=== PATIENT | male | born 1980 | race Hispanic/Latino ===

== ENCOUNTER 2018-01-22 01:53 | Emergency (ER) | payer SELFPAY ==
[2018-01-22] MEDS ORDERED: ALBUTEROL 2.5 MG/3 ML NEB SOL ONE (02:12)
[2018-01-22] MEDS ORDERED: IPRATROPIUM BROM 0.5MG/2.5ML ONE (02:12)
[2018-01-22] MEDS ORDERED: predniSONE 20 MG TAB ONE (02:12)
--- NOTE | 2018-01-22 02:55 | EDPHYS ---
Physician Documentation [facility] Name: Alonzo Damon Age: 37 yrs Sex: Male : 1980 Arrival Date: 01/22/2018 Time: 01:56 Bed 26 Private MD: LUKAS Physician Gigi Gomez HPI: 01/22 02:04 This 37 yrs old Male presents to ER via Unassigned with complaints of Asthma kb Exacerbation. 02:04 The patient presents to the emergency department with wheezing, Current therapy: kb albuterol inhaler, ran out of inhaler 2 days ago, that began without any particular precipitating event, the patient was reported to have trouble breathing. Onset: The symptoms/episode began/occurred this morning. Modifying factors: The symptoms are alleviated by nothing, the symptoms are aggravated by nothing. Associated signs and symptoms: The patient has no apparent associated signs or symptoms. Severity of symptoms: At their worst the symptoms were mild moderate in the emergency department the symptoms are unchanged. The patient has experienced similar episodes in the past, multiple times. The patient has not recently seen a physician. 02:06 Pt states he ran out of his inhaler 2 days ago. Has been having issues with his asthma kb since then. States tonight he woke up "looking for air." Reports his PCP is in [place] and he would normally just go to him and get his inhaler refilled and prednisone for exacerbations.. Historical: - Allergies: 02:07 No Known Allergies; rk2 - PMHx: 02:07 Asthma; rk2 - Immunization history:: Flu vaccine is not up to date. - Social history:: Smoking status: Patient/guardian denies using tobacco. ROS: 02:06 Constitutional: Negative for fever, chills, and weight loss, Cardiovascular: Negative kb for chest pain, palpitations, and edema, Abdomen/GI: Negative for abdominal pain, nausea, vomiting, diarrhea, and constipation, Back: Negative for injury and pain, : Negative for injury, bleeding, discharge, and swelling, MS/Extremity: Negative for injury and deformity, Skin: Negative for injury, rash, and discoloration, Neuro: Negative for headache, weakness, numbness, tingling, and seizure. 02:06 Respiratory: Positive for shortness of breath, wheezing, expiratory, Negative for cough, dyspnea on exertion, hemoptysis, orthopnea, pleurisy, sputum production. Exam: 02:05 Constitutional: This is a well developed, well nourished patient who is awake, alert, kb and in no acute distress. Head/Face: Normocephalic, atraumatic. Chest/axilla: Normal chest wall appearance and motion. Nontender with no deformity. No lesions are appreciated. Cardiovascular: Regular rate and rhythm with a normal S1 and S2. No gallops, murmurs, or rubs. Normal PMI, no JVD. No pulse deficits. Abdomen/GI: Soft, non-tender, with normal bowel sounds. No distension or tympany. No guarding or rebound. No evidence of tenderness throughout. Back: No spinal tenderness. No costovertebral tenderness. Full range of motion. Skin: Warm, dry with normal turgor. Normal color with no rashes, no lesions, and no evidence of cellulitis. MS/ Extremity: Pulses equal, no cyanosis. Neurovascular intact. Full, normal range of motion. Neuro: Awake and alert, GCS 15, oriented to person, place, time, and situation. Cranial nerves II-XII grossly intact. Motor strength 5/5 in all extremities. Sensory grossly intact. Cerebellar exam normal. Normal gait. 02:05 Respiratory: the patient does not display signs of respiratory distress, Respirations: normal, Breath sounds: wheezing: expiratory that is mild, is scattered. Vital Signs: 02:07 BP 157 / 90; Pulse 65; Resp 22; Temp 98.3; Pulse Ox 97% on R/A; rk2 MDM: 02:04 Patient medically screened. kb 02:05 Data reviewed: vital signs, nurses notes. Data interpreted: Pulse oximetry: on room air kb is 98 %. Interpretation: normal. 02:54 Counseling: I had a detailed discussion with the patient and/or guardian regarding: the kb historical points, exam findings, and any diagnostic results supporting the discharge/admit diagnosis, the need for outpatient follow up, a family practitioner, to return to the emergency department if symptoms worsen or persist or if there are any questions or concerns that arise at home. Response to treatment: the patient's symptoms have resolved after treatment. ED course: Resp even and unlabored. Resting on stretcher, in no distress. Lungs clear bilaterally. . Administered Medications: 02:18 Drug: DuoNeb (3:1) (2.5 mg - 0.5 mg) 3 ml Route: Nebulizer; rk2 02:47 Follow up: Response: No adverse reaction; Wheezing diminished rk2 02:18 Drug: predniSONE 60 mg Route: PO; rk2 02:47 Follow up: Response: No adverse reaction rk2 Disposition: 08:36 Co-signature as Attending Physician, Gigi Gomez MD I agree with the assessment and suzy plan of care. Disposition: 01/22/18 02:54 Discharged to Home. Impression: Unspecified asthma with (acute) exacerbation. - Condition is Stable. - Discharge Instructions: Asthma, Adult, [id number]. - Prescriptions for Prednisone 20 mg Oral Tablet - take 1 tablet by ORAL route once daily for 5 days; 5 tablet. Albuterol Sulfate 90 mcg/actuation - inhale 1-2 puff by INHALATION route every 4-6 hours; 1 Inhaler. - Medication Reconciliation Form, Thank You Letter, Antibiotic Education, Prescription Opioid Use form. - Follow up: Emergency Department; When: As needed; Reason: Worsening of condition. Follow up: Private Physician; When: 2 - 3 days; Reason: Recheck today's complaints, Continuance of care, Re-evaluation by your physician. Signatures: Antonella Michel, ARCHEOLOGY FACULTY MEMBER-C ARCHEOLOGY FACULTY MEMBER-Gigi Garcia MD MD cha Kidder, Rhonda, RN RN rk2
--- NOTE | 2018-01-22 02:55 | ER ---
Nurse's Notes [facility] Name: Alonzo Damon Age: 37 yrs Sex: Male : 1980 Arrival Date: 01/22/2018 Time: 01:56 Bed 26 Private MD: Diagnosis: Unspecified asthma with (acute) exacerbation Presentation: 01/22 02:06 Presenting complaint: Patient states: C/O SOB, onset today. Hx of Asthma. Transition of rk2 care: patient was not received from another setting of care. Onset of symptoms was January 22, 2018. Initial Sepsis Screen: Does the patient meet any 2 criteria? No. Patient's initial sepsis screen is negative. Does the patient have a suspected source of infection? No. Patient initial sepsis screen negative. Care prior to arrival: None. 02:06 Method Of Arrival: Ambulatory rk2 02:06 Acuity: FLORENCIO 3 rk2 Triage Assessment: 02:19 General: Appears uncomfortable, Behavior is calm, cooperative. Pain: Complains of pain rk2 in headache. Neuro: Level of Consciousness is alert, obeys commands, Oriented to person, place, time, situation. Respiratory: Airway is patent Respiratory effort is even, unlabored, Respiratory pattern is regular, symmetrical, Breath sounds with wheezes in scattered x all lobes. Derm: Skin is pink, warm \T\ dry. Historical: - Allergies: 02:07 No Known Allergies; rk2 - PMHx: 02:07 Asthma; rk2 - Immunization history:: Flu vaccine is not up to date. - Social history:: Smoking status: Patient/guardian denies using tobacco. Screenin:19 Abuse screen: Denies threats or abuse. Nutritional screening: No deficits noted. rk2 Tuberculosis screening: No symptoms or risk factors identified. Fall Risk None identified. Vital Signs: 02:07 BP 157 / 90; Pulse 65; Resp 22; Temp 98.3; Pulse Ox 97% on R/A; rk2 ED Course: :56 Patient arrived in ED. es 02:02 Anya James, RN is Primary Nurse. rk2 02:04 Antonella Michel FNP-C is PHCP. kb 02:04 Gigi Gomez MD is Attending Physician. kb 02:07 Triage completed. rk2 02:19 Patient has correct armband on for positive identification. Bed in low position. Call rk2 light in reach. 02:19 Arm band placed on. rk2 02:59 No provider procedures requiring assistance completed. Patient did not have IV access rk2 during this emergency room visit. Administered Medications: 02:18 Drug: DuoNeb (3:1) (2.5 mg - 0.5 mg) 3 ml Route: Nebulizer; rk2 02:47 Follow up: Response: No adverse reaction; Wheezing diminished rk2 02:18 Drug: predniSONE 60 mg Route: PO; rk2 02:47 Follow up: Response: No adverse reaction rk2 Outcome: 02:54 Discharge ordered by . michelle 02:59 Discharged to home via ambulance. rk2 02:59 Condition: improved 02:59 Discharge instructions given to patient, Prescriptions given X 2. 03:00 Patient left the ED. rk2 Signatures: Antonella Michel, APPLIANCES SAMPLE MAKER-C APPLIANCES SAMPLE MAKER-Shanti Beckwith Rhonda, RN RN rk2
== END 2018-01-22 03:00 | disposition home or self-care (01) ==
LOC: ER 01:53
DX: J45.901 Unspecified asthma with (acute) exacerbation (principal)
CPT/HCPCS: 94640; 99284; J7512

== ENCOUNTER 2018-02-02 15:18 | Emergency (ER) | payer SELFPAY ==
[2018-02-02 16:17] LABS: Absolute Lymphocytes (CBC) 1.4 K/uL (0.7-4.9); Absolute Monocytes 0.5 K/uL (0.1-1.3); Absolute Neutrophil 4.4 K/uL (1.8-8.0); Basophils % 0.7 % (0-1.3); Eosinophils % 1.7 % (0-4.4); Hematocrit 46.7 % (39.6-49.0); Lymphocytes % 21.4 % (15.3-44.8); MCH 29.6 pg (27.0-35.0); MCV 87.1 fL (80-100); MPV 10.2 fL (7.6-11.3); Monocytes % 7.4 % (3.3-12.3); RBC Red Blood Cell Count 5.36 M/uL (4.33-5.43)
[2018-02-02] MEDS ORDERED: NA CHLORIDE 0.9% 1,000 ML ONE (16:18)
[2018-02-02 16:21] LABS: Protime INR 1.04
[2018-02-02 16:37] LABS: Platelet Estimate ADEQ; Urine White Blood Cell Casts OK
[2018-02-02 16:38] LABS: Blood Morphology Comment NOT SEEN (NOT SEEN)
[2018-02-02 16:43] LABS: CKMB Creatine Kinase MB 1.5 ng/ml (0.3-4.0); Glucose Level 144 mg/dL (65-120); Lipase 20 U/L (22-51)
[2018-02-02 16:49] LABS: Albumin 4.4 g/dL (3.2-5.5); Alkaline Phosphatase 63 IU/L (42-121); BUN Blood Urea Nitrogen 12 mg/dL (6-20); Bilirubin Direct 0.2 mg/dL (0-0.2); Bilirubin Total 0.7 mg/dL (0.3-1.2); Protein, Total 7.3 g/dL (6.0-8.3)
--- NOTE | 2018-02-02 16:52 | RAD REPORT ---
EXAM DESCRIPTION: RAD - Chest Single View - 02/02/2018 4:43 pm CLINICAL HISTORY: Palpitations. COMPARISON: 11/10/2017 FINDINGS: Portable technique limits examination quality. The lungs are grossly clear. The heart is normal in size. No displaced fractures. IMPRESSION: No acute intrathoracic process suspected.
[2018-02-02 16:55] LABS: ALT/SGPT 29 IU/L (10-60); AST/SGOT 28 IU/L (10-42); Bicarbonate 26 mEq/L (21-31); Creatine Phosphokinase 166 IU/L (22-269); Potassium 3.9 mEq/L (3.6-5.0); Sodium Level 136 mEq/L (135-145)
[2018-02-02 16:57] LABS: Urine Blood NEGATIVE (NEG); Urine Glucose NEGATIVE (NEG); Urine Protein NEGATIVE (NEG)
[2018-02-02 17:06] LABS: Thyroid Stimulating Hormone 0.99 uIU/mL (0.34-5.60)
--- NOTE | 2018-02-02 17:48 | ER ---
Nurse's Notes [facility] Name: Alonzo Damon Age: 37 yrs Sex: Male : 1980 Arrival Date: 02/02/2018 Time: 15:20 Bed 14 Private MD: None, None Diagnosis: Anxiety disorder, unspecified;Palpitations-stress Presentation: 02/02 15:32 Presenting complaint: Patient states: has been under a lot of stress over past 2 days, iw today started having palpitations, also was having pain to LFA, has had similar episode of palpitations when he was under a lot of stress 3-4 months ago, he changed his diet and stopped drinking alcohol but had a glass of wine last night, pt denies chest pain, c/o mild SOB with hx of asthma but does not use inhaler anymore. Transition of care: patient was not received from another setting of care. Onset of symptoms was February 02, 2018. Initial Sepsis Screen: Does the patient meet any 2 criteria? No. Patient's initial sepsis screen is negative. Does the patient have a suspected source of infection? No. Patient's initial sepsis screen is negative. Care prior to arrival: Medication(s) given: ASA, 81 mg, x 2. 15:32 Method Of Arrival: Ambulatory iw 15:32 Acuity: FLORENCIO 3 iw Historical: - Allergies: 15:37 NKA; iw - Home Meds: 15:37 None [Active]; iw - PMHx: 15:37 Asthma; iw - PSHx: 15:37 right hand; iw - Immunization history:: Adult Immunizations not up to date. - Social history:: Smoking status: Patient/guardian denies using tobacco. - Family history:: not pertinent. Screenin:42 Abuse screen: Denies threats or abuse. Denies injuries from another. Nutritional iw screening: No deficits noted. Tuberculosis screening: No symptoms or risk factors identified. 16:31 Fall Risk None identified. em Assessment: 15:40 General: Appears in no apparent distress. comfortable, Behavior is calm, cooperative. iw Pain: Complains of pain in dorsal aspect of left forearm Pain currently is 0 out of 10 on a pain scale. Neuro: Level of Consciousness is awake, alert, obeys commands, Oriented to person, place, time, situation, Moves all extremities. Full function. Cardiovascular: Reports palpitations, shortness of breath, Denies chest pain, Heart tones S1 S2 present. Respiratory: Reports shortness of breath Respiratory effort is even, unlabored, Respiratory pattern is regular, symmetrical. Derm: Skin is pink, warm \T\ dry. normal. Musculoskeletal: Range of motion: intact in all extremities. 17:00 Reassessment: Patient appears in no apparent distress at this time. Patient and/or em family updated on plan of care and expected duration. Pain level reassessed. Patient is alert, oriented x 3, equal unlabored respirations, skin warm/dry/pink. Patient states feeling better. 18:00 Reassessment: Patient appears in no apparent distress at this time. Patient and/or em family updated on plan of care and expected duration. Pain level reassessed. Patient is alert, oriented x 3, equal unlabored respirations, skin warm/dry/pink. resting comfortably in bed. Vital Signs: 15:36 BP 140 / 80; Pulse 75; Resp 18 S; Temp 97.8; Pulse Ox 98% on R/A; Weight 107.05 kg; iw Height 5 ft. 8 in. (172.72 cm); Pain 0/10; 16:31 BP 109 / 69; Pulse 68; Resp 18; Pulse Ox 97% on R/A; em 17:31 BP 105 / 83; Pulse 59; Resp 17; Pulse Ox 97% on R/A; mh5 18:29 BP 112 / 72; Pulse 64; Resp 16; Pulse Ox 100% on R/A; Pain 0/10; em 15:36 Body Mass Index 35.88 (107.05 kg, 172.72 cm) ED Course: 15:20 Patient arrived in ED. mr 15:21 None, None is Private Physician. mr 15:26 Félix Mckee LVN is Primary Nurse. em 15:36 Triage completed. iw 15:36 Arm band placed on. iw 15:42 Patient has correct armband on for positive identification. iw 15:42 EKG done, by ED staff, reviewed by Gigi Gomez MD. mh5 15:49 Gigi Gomez MD is Attending Physician. [facility] 16:08 Initial lab(s) drawn, by wa, sent to lab. Inserted saline lock: 20 gauge in right iw antecubital area, using aseptic technique. Blood collected. 16:18 X-ray completed. Portable x-ray completed in exam room. Patient tolerated procedure kp1 well. 16:28 No provider procedures requiring assistance completed. em 16:43 XRAY Chest (1 view) In Process Unspecified. EDMS 17:47 Dano Bingham MD is Referral Physician. [facility] 18:30 IV discontinued, intact, bleeding controlled, No redness/swelling at site. Pressure em dressing applied. Administered Medications: 16:25 Drug: NS 0.9% 1000 ml Route: IV; Rate: 125 ml/hr; Site: right antecubital; em 18:31 Follow up: IV Status: Order to discontinue infusion; IV Intake: 300ml em Intake: 18:31 IV: 300ml; Total: 300ml. em Outcome: 17:48 Discharge ordered by . [facility] 18:29 Discharged to home ambulatory. em 18:29 Condition: good 18:29 Discharge instructions given to patient, Instructed on discharge instructions, follow up and referral plans. no drinking with medication, medication usage, Demonstrated understanding of instructions, follow-up care, medications, Prescriptions given X 1. 18:33 Patient left the ED. em Signatures: Dispatcher [employer] EDMS Gigi Gomez MD MD cha Rivera, Maria mr Munoz, Félix, CASINO FLOOR RUNNER CASINO FLOOR RUNNER Juli Barrera, Cecilia Reeves RN [facility] Xiao Lundy 1
--- NOTE | 2018-02-02 17:48 | EDPHYS ---
Physician Documentation [facility] Name: Alonzo Damon Age: 37 yrs Sex: Male : 1980 Arrival Date: 02/02/2018 Time: 15:20 Bed 14 Private MD: None, None ED Physician Gigi Gomez HPI: 02/02 17:44 This 37 yrs old Male presents to ER via Ambulatory with complaints of suzy Palpitations, Arm Pain. 17:44 The patient presents with a history of heart skipping beats. Context: The symptoms suzy occur at rest, with anxiety, with stress. Onset: The symptoms/episode began/occurred 1 week(s) ago. Duration: The patient or guardian reports multiple episodes, with no pattern. Modifying factors: The symptoms are aggravated by stress, The symptoms are alleviated by remaining still, rest. Associated signs and symptoms: The patient has no apparent associated signs or symptoms. Severity of symptoms: At their worst the symptoms were mild in the emergency department the symptoms are unchanged. The patient has experienced similar episodes in the past. Historical: - Allergies: 15:37 NKA; iw - Home Meds: 15:37 None [Active]; iw - PMHx: 15:37 Asthma; iw - PSHx: 15:37 right hand; iw - Immunization history:: Adult Immunizations not up to date. - Social history:: Smoking status: Patient/guardian denies using tobacco. - Family history:: not pertinent. ROS: 17:44 Constitutional: Negative for fever, chills, and weight loss, Eyes: Negative for injury, suzy pain, redness, and discharge, ENT: Negative for injury, pain, and discharge, Neck: Negative for injury, pain, and swelling, Respiratory: Negative for shortness of breath, cough, wheezing, and pleuritic chest pain, Abdomen/GI: Negative for abdominal pain, nausea, vomiting, diarrhea, and constipation, Back: Negative for injury and pain, : Negative for injury, bleeding, discharge, and swelling, MS/Extremity: Negative for injury and deformity, Skin: Negative for injury, rash, and discoloration, Neuro: Negative for headache, weakness, numbness, tingling, and seizure, Psych: Negative for depression, anxiety, suicide ideation, homicidal ideation, and hallucinations, Allergy/Immunology: Negative for hives, rash, and allergies, Endocrine: Negative for neck swelling, polydipsia, polyuria, polyphagia, and marked weight changes, Hematologic/Lymphatic: Negative for swollen nodes, abnormal bleeding, and unusual bruising. 17:44 Cardiovascular: Positive for palpitations. Exam: 17:44 Constitutional: This is a well developed, well nourished patient who is awake, alert, suzy and in no acute distress. Head/Face: Normocephalic, atraumatic. Eyes: Pupils equal round and reactive to light, extra-ocular motions intact. Lids and lashes normal. Conjunctiva and sclera are non-icteric and not injected. Cornea within normal limits. Periorbital areas with no swelling, redness, or edema. ENT: Nares patent. No nasal discharge, no septal abnormalities noted. Tympanic membranes are normal and external auditory canals are clear. Oropharynx with no redness, swelling, or masses, exudates, or evidence of obstruction, uvula midline. Mucous membranes moist. Neck: Trachea midline, no thyromegaly or masses palpated, and no cervical lymphadenopathy. Supple, full range of motion without nuchal rigidity, or vertebral point tenderness. No Meningismus. Chest/axilla: Normal chest wall appearance and motion. Nontender with no deformity. No lesions are appreciated. Cardiovascular: Regular rate and rhythm with a normal S1 and S2. No gallops, murmurs, or rubs. Normal PMI, no JVD. No pulse deficits. Respiratory: Lungs have equal breath sounds bilaterally, clear to auscultation and percussion. No rales, rhonchi or wheezes noted. No increased work of breathing, no retractions or nasal flaring. Abdomen/GI: Soft, non-tender, with normal bowel sounds. No distension or tympany. No guarding or rebound. No evidence of tenderness throughout. Back: No spinal tenderness. No costovertebral tenderness. Full range of motion. Male : Normal genitalia with no discharge or lesions. Skin: Warm, dry with normal turgor. Normal color with no rashes, no lesions, and no evidence of cellulitis. MS/ Extremity: Pulses equal, no cyanosis. Neurovascular intact. Full, normal range of motion. Neuro: Awake and alert, GCS 15, oriented to person, place, time, and situation. Cranial nerves II-XII grossly intact. Motor strength 5/5 in all extremities. Sensory grossly intact. Cerebellar exam normal. Normal gait. Psych: Awake, alert, with orientation to person, place and time. Behavior, mood, and affect are within normal limits. 17:44 Musculoskeletal/extremity: DVT Exam: No signs of deep vein thrombosis. no pain, no swelling, no tenderness, negative Homans' sign noted on exam, no appreciated bluish discoloration, no erythema, no increased warmth. Vital Signs: 15:36 BP 140 / 80; Pulse 75; Resp 18 S; Temp 97.8; Pulse Ox 98% on R/A; Weight 107.05 kg; iw Height 5 ft. 8 in. (172.72 cm); Pain 0/10; 16:31 BP 109 / 69; Pulse 68; Resp 18; Pulse Ox 97% on R/A; em 17:31 BP 105 / 83; Pulse 59; Resp 17; Pulse Ox 97% on R/A; mh5 18:29 BP 112 / 72; Pulse 64; Resp 16; Pulse Ox 100% on R/A; Pain 0/10; em 15:36 Body Mass Index 35.88 (107.05 kg, 172.72 cm) iw MDM: 15:49 Patient medically screened. [facility] 17:46 Data reviewed: vital signs, nurses notes, lab test result(s), EKG, radiologic studies. [facility] 02/02 15:51 Order name: Basic Metabolic Panel; Complete Time: 17:43 02/02 15:51 Order name: BNP; Complete Time: 17:43 02/02 15:51 Order name: CBC with Diff; Complete Time: 17:43 02/02 15:51 Order name: Ckmb; Complete Time: 17:43 02/02 15:51 Order name: CPK; Complete Time: 17:43 02/02 15:51 Order name: LFT's; Complete Time: 17:43 02/02 15:51 Order name: Magnesium; Complete Time: 17:43 02/02 15:51 Order name: PT-INR; Complete Time: 17:43 02/02 15:51 Order name: Ptt, Activated; Complete Time: 17:43 02/02 15:51 Order name: Troponin (emerg Dept Use Only); Complete Time: 17:43 02/02 15:51 Order name: TSH; Complete Time: 17:43 02/02 15:51 Order name: Lipase; Complete Time: 17:[address] [facility] 02/02 15:51 Order name: Urine Culture [facility] 02/02 16:22 Order name: CBC Smear Scan; Complete Time: 17:43 [facility] 02/02 15:51 Order name: XRAY Chest (1 view); Complete Time: 17:[address] [facility] 02/02 15:51 Order name: EKG; Complete Time: 15:[address] [facility] 02/02 15:51 Order name: Cardiac monitoring; Complete Time: 16:[address] [facility] 02/02 15:51 Order name: EKG - Nurse/Tech; Complete Time: 16:[address] [facility] 02/02 15:51 Order name: IV Saline Lock; Complete Time: 16: [facility] 02/02 15:51 Order name: Labs collected and sent; Complete Time: 16: [facility] 02/02 15:51 Order name: O2 Per Protocol; Complete Time: 16:[address] [facility] 02/02 15:51 Order name: O2 Sat Monitoring; Complete Time: 16:[address] [facility] 02/02 15:51 Order name: Urine Dipstick-Ancillary (obtain specimen); Complete Time: 16:[address] [facility] 02/02 16:34 Order name: Urine Dipstick--Ancillary (enter results); Complete Time: 17:43 eb Administered Medications: 16:25 Drug: NS 0.9% 1000 ml Route: IV; Rate: 125 ml/hr; Site: right antecubital; em 18:31 Follow up: IV Status: Order to discontinue infusion; IV Intake: 300ml em Disposition: 02/02/18 17:48 Discharged to Home. Impression: Anxiety disorder, unspecified, Palpitations - stress. - Condition is Stable. - Discharge Instructions: Panic Attacks, Palpitations, Panic Attacks, [id number], Aspirin and Your Heart, Palpitations, [id number]. - Prescriptions for Xanax 0.5 mg Oral Tablet - take 1 tablet by ORAL route every 8 hours As needed; 20 tablet. - Medication Reconciliation Form, Thank You Letter, Antibiotic Education, Prescription Opioid Use form. - Follow up: Private Physician; When: 2 - 3 days; Reason: Recheck today's complaints, Continuance of care, Re-evaluation by your physician. Follow up: Dano Bingham MD; When: 2 - 3 days; Reason: Recheck today's complaints, Re-evaluation by your physician. - Problem is new. - Symptoms have improved. Signatures: Dispatcher [employer] Gigi Soni, Félix Lopez MD, cha, INFORMATION TECHNOLOGY SECURITY ANALYST INFORMATION TECHNOLOGY SECURITY ANALYST Juli Rao, RN RN iw
--- NOTE | 2018-02-04 07:20 | EKG ---
Test Date: 2018-02-02 Test Time: 15:35:10 Computer Clerk: TYRESE MEASUREMENT RESULTS: Intervals: Rate: 73 IL: 176 QRSD: 80 QT: 378 QTc: 416 [place]: P: 62 IL: 176 QRS: 57 T: 28 INTERPRETIVE STATEMENTS: Normal sinus rhythm Normal ECG Compared to ECG 11/10/2017 19:49:37 No significant changes Electronically Signed On 02-04-18 07:18:59 CDT by Maxx Mir
== END 2018-02-02 18:33 | disposition home or self-care (01) ==
LOC: ER 15:18
DX: F41.9 Anxiety disorder, unspecified (principal)
CPT/HCPCS: 36415; 71045; 80048; 80076; 81003; 82550; 82553; 83690; 83735; 83880; 84443; 84484; 85025; 85610; 85730; 87086; 87088; 93005; 96360; 96361; 99284; J7030